=== PATIENT | male | born 2000 | race African-American/Black ===

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

== ENCOUNTER 2022-08-02 16:35 | Emergency (ER) | payer OTHER ==
[~2022-08-02] VITALS: Ht 170.2 cm; Wt 87.0 kg
[2022-08-02 16:47] VITALS: BP 110/78
[2022-08-02] MEDS ORDERED: IBUP-2029 MT (21:25)
[2022-08-02] MEDS ORDERED: DEXAMETHASONE 10 MG/ML VIAL IM ONE (21:30)
== END 2022-08-02 21:53 | disposition home or self-care (01) ==
LOC: ER 16:35
DX: J03.90 Acute tonsillitis, unspecified (principal); Z88.0 Allergy status to penicillin
CPT/HCPCS: 87070; 96372; 99283; J1100

== ENCOUNTER 2024-04-01 04:07 | Emergency (ER) | payer SELFPAY ==
[~2024-04-01] VITALS: Ht 175.3 cm; Wt 75.0 kg
[~2024-04-01 04:07] MED LIST: IBUP-2029 MT
[2024-04-01 04:10] VITALS: O2SAT 100
[2024-04-01 05:00] VITALS: BP 135/88; PULSE 49; RESP 18; TEMP 98.2
== END 2024-04-01 05:45 | disposition home or self-care (01) ==
LOC: ER 04:07
DX: M25.532 Pain in left wrist (principal); Z88.0 Allergy status to penicillin
CPT/HCPCS: 73110; 73120; 99284